=== PATIENT | male | born 1945 | race Caucasian/White ===

== ENCOUNTER → 2020-11-27 | Outpatient (CLI) | payer MEDICARE, OTHER | LOC: HEART 5 15:35 | DX: G47.00 Insomnia, unspecified (principal); G47.61 Periodic limb movement disorder; G47.52 REM sleep behavior disorder; K21.9 Gastro-esophageal reflux disease without esophagitis; G47.53 Recurrent isolated sleep paralysis; G47.26 Circadian rhythm sleep disorder, shift work type; J98.11 Atelectasis | CPT/HCPCS: 71046; 94060; 94729 ==

== ENCOUNTER → 2021-02-04 | Day surgery (SDC) | payer MEDICARE, OTHER ==
[~2021-02-04] MED LIST: ALLERGY RELIEF5 MG PO; ATORVASTATIN CA80 MG PO; CARVEDILOL3.125 MG PO; FLOMAX 0.4 MG0.4 MG PO; ISOSORBIDE PO; LACTULOSE10 GM PO; LEVOTHYROXINE125 MC1 PO; PROTONIX40 MG PO; ST. JOSEPH ASPI81 M1 PO; TOPAMAX25 MG PO; VITAMIN C1000 MG PO; VITAMIN D325 MC6 PO
== END | disposition home or self-care (01) ==
LOC: OR 06:49
DX: C18.9 Malignant neoplasm of colon, unspecified (principal); D12.2 Benign neoplasm of ascending colon; K44.9 Diaphragmatic hernia without obstruction or gangrene; K21.00 Gastro-esophageal reflux disease with esophagitis, without bleeding; K64.1 Second degree hemorrhoids; D50.0 Iron deficiency anemia secondary to blood loss (chronic); K59.09 Other constipation; R19.5 Other fecal abnormalities; I12.0 Hypertensive chronic kidney disease with stage 5 chronic kidney disease or end stage renal disease; N18.6 End stage renal disease; E03.9 Hypothyroidism, unspecified; E66.3 Overweight; Z68.26 Body mass index [BMI] 26.0-26.9, adult; Z99.2 Dependence on renal dialysis; Z79.82 Long term (current) use of aspirin; Z79.899 Other long term (current) drug therapy; Z20.822 Contact with and (suspected) exposure to COVID-19
CPT/HCPCS: J2704; J7040

== ENCOUNTER → 2021-03-12 | Outpatient (CLI) | payer MEDICARE, OTHER ==
[2021-03-12 16:42] LABS: HEMOGLOBIN 6.7 gm/dl (14.0-17.5)
== END ==
LOC: LAB 15:41
PROVIDERS: Internal Medicine
DX: N18.9 Chronic kidney disease, unspecified (principal); D63.1 Anemia in chronic kidney disease; D50.9 Iron deficiency anemia, unspecified; D51.8 Other vitamin B12 deficiency anemias
CPT/HCPCS: 36415; 85014; 85018; 86850; 86900; 86901; 86920

== ENCOUNTER → 2021-03-13 | Outpatient (CLI) | payer MEDICARE, OTHER | LOC: OPSV 08:00 | DX: D50.9 Iron deficiency anemia, unspecified (principal); N18.9 Chronic kidney disease, unspecified; D63.1 Anemia in chronic kidney disease; D51.8 Other vitamin B12 deficiency anemias | CPT/HCPCS: 36430; J7050 ==